=== PATIENT | male | born 1965 | race Caucasian/White ===

== ENCOUNTER 2017-07-02 04:23 | Emergency (ER) | payer MEDICAID ==
[~2017-07-02] VITALS: Ht 165.1 cm; Wt 68.0 kg
--- NOTE | 2017-07-02 04:35 | NUR ---
CODE STEMI ACTIVATED BY MD TRIPP
--- NOTE | 2017-07-02 04:35 | NUR ---
EKG ON GOING
--- NOTE | 2017-07-02 04:41 | NUR ---
PRESENTS SELF TO ED DT CHEST PAIN, SHARP, 10/10, NON RADIATING X 2 HOURS. PATIENT IS AAO4.APPEARS IN MILD APPARENT DISTRESS. RESPIRATION EVENA AND UNLABORED. PATIENT REPORTED TAKING TIQUILLA 2 HOURS CREDIT UNDERWRITER WELL. PATIENT'S SKIN IS WARM TO TOUCH AND NON DIAPHORETIC. AFEBRILE.
--- NOTE | 2017-07-02 04:44 | NUR ---
STARTED IV ACCESS ON RIGHT AC G18, VS DORYS AND RECORDED
--- NOTE | 2017-07-02 04:45 | NUR ---
BLOOD WAS DRAWN AT THIS TIME
--- NOTE | 2017-07-02 04:47 | NUR ---
CALLED [facility] FOR TRANSFER
--- NOTE | 2017-07-02 04:48 | NUR ---
PT SIGNED PAPER WORKS FOR TRANSFER
[2017-07-02 04:50] LABS: BASOPHILS % (AUTO) 0.4 % (0.0-2.0); EOSINOPHILS # (AUTO) 0.1 /CMM (0.0-0.7); EOSINOPHILS % (AUTO) 0.8 % (0.0-6.0); HEMATOCRIT 44 % (39-51); LYMPHOCYTES # (AUTO) 1.5 /CMM (0.8-4.8); LYMPHOCYTES % (AUTO) 24.3 % (20.0-44.0); MEAN CORPUSCULAR HEMOGLOBIN 31 PG (26.0-33.0); MEAN CORPUSCULAR HGB CONC 34 g/dl (31.0-36.0); MEAN CORPUSCULAR VOLUME 89 fL (80-96); MONOCYTES # (AUTO) 0.3 /CMM (0.1-1.30); MONOCYTES % (AUTO) 4.5 % (2.0-12.0); NEUTROPHILS # (AUTO) 4.3 /CMM (1.8-8.9); PLATELET COUNT (AUTO) 215 /CMM (150-450); RDW COEFFICIENT OF VARIATION 12.2 (11.5-15.0); RED BLOOD CELL COUNT(AUTO) 4.88 MIL/uL (4.5-6.0); WHITE BLOOD COUNT (AUTO) 6.1 K/uL (4.3-11.0)
--- NOTE | 2017-07-02 04:52 | NUR ---
ANOTHER LINE STARTED ON LEFT AC G20
--- NOTE | 2017-07-02 04:56 | NUR ---
RADIOLOGY AT BED SIDE TO DO CHEST XRAY
[2017-07-02 05:01] LABS: CALCIUM, SERUM 8.5 mg/dL (8.5-10.1); POTASSIUM 3.6 mmol/L (3.5-5.1)
--- NOTE | 2017-07-02 05:02 | NUR ---
DR. TRIPP SPEAKING TO DR. BELINDA BOWMAN VARUN' FINISH SANDER
[2017-07-02 05:03] LABS: INR 0.98 (0.87-1.13); PROTHROMBIN TIME 10.5 SECS (9.5-12.7)
[2017-07-02 05:08] LABS: TROPONIN I 0.1 ng/mL (0.00-0.056)
--- NOTE | 2017-07-02 05:17 | NUR ---
CALLED [facility], ETA FOR STEMI CCT 25 MINS.
--- NOTE | 2017-07-02 05:33 | NUR ---
PER [facility] REPORT GIVEN TO [facility] VIC DUBOIS VSKaleb STABLE. PT AWARE AND WITH ALL PERSONAL BELONGINGS. PER [facility] TOOK OVER CARE. IVS INTACT AND PATENT. NO S/S INFECTION AND INFILTRATION NOTED.
[2017-07-02 05:34] VITALS: BP 152/115
--- NOTE | 2017-07-02 05:37 | NUR ---
PT GOT CONTROL CLERK REPAIRS BY ST VARUN YOUNG FOR GOPHERMAN, VSS
== END 2017-07-02 05:39 | disposition short-term general hospital (02) ==
LOC: ER 04:25
DX: I21.3 ST elevation (STEMI) myocardial infarction of unspecified site (principal); F17.200 Nicotine dependence, unspecified, uncomplicated
CPT/HCPCS: 36415; 71010-TC; 80048-TC; 84484-TC; 85025-TC; 85730-TC; A4606; J1644; J2270; J2405; Z7610

== ENCOUNTER 2017-11-04 14:32 | Emergency (ER) | payer SELFPAY ==
[~2017-11-04] VITALS: Ht 165.1 cm; Wt 68.0 kg
[2017-11-04 14:36] VITALS: BP 117/70
== END 2017-11-04 15:31 | disposition home or self-care (01) ==
LOC: ER 14:34
DX: H92.02 Otalgia, left ear (principal); K08.89 Other specified disorders of teeth and supporting structures; R20.2 Paresthesia of skin; I25.2 Old myocardial infarction; F17.200 Nicotine dependence, unspecified, uncomplicated
CPT/HCPCS: 82962; 99283; A4606; Z7610